=== PATIENT | male | born 1960 | race African-American/Black ===

== ENCOUNTER 2016-08-02 00:27 | Emergency (ER) | payer OTHER ==
[~2016-08-02] VITALS: Ht 175.3 cm; Wt 95.3 kg
[~2016-08-02 00:27] MED LIST: ALBUTEROL0.09 MG/A1 INH; AUGMENTIN 875-1 EACH PO; PREDNISONE 20MG20 MG PO; PREDNISONE50 M1 PO; VENTOLIN HFA18 GM PO
--- NOTE | 2016-08-02 01:00 | ED DYSPNEA/ASTHMA COMPLAINT ---
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 Source: patient, old records Exam Limitations: no limitations Vital Signs & Intake/Output Vital Signs & Intake/Output Vital Signs Date Time Temp Pulse Resp B/P B/P Pulse O2 O2 Flow FiO2 Mean Ox Delivery Rate 08/02 224 97.0 78 18 128/88 97 Nasal 2.0L Cannula 08/02 0120 98 Nasal 2.0L Cannula 08/02 011 98 Nasal 2.0L Cannula 08/02 0038 96 Room Air 08/03 31 97.9 82 22 131/90 96 Room Air Allergies Coded Allergies: No Known Allergies (07/15/15) Reconcile Medications Albuterol Sulfate (Albuterol Sulfate Hfa) 0.09 MG/Actuation STANISLAV 2 PUFF INH Q4- 6 PRN PRN SHORTNESS OF BREATH 90 MCG PER PUFF Albuterol Sulfate (Ventolin Hfa) 18 GM HFA.AER.AD 2 PUFF PO 4 TIMES/DAY PRN WHEEZE Albuterol Sulfate (Proair Hfa) 90 MCG HFA.AER.AD 2-4 PUF INH Q4-6 PRN PRN shortness of breath Amoxicillin/Potassium Clav (Augmentin 875-125 Tablet) 1 EACH TABLET 1 TAB PO BID BRONCHITIS Prednisone 20 MG TAB 2 TAB PO DAILY ASTHMA Prednisone 50 MG TABLET 1 TAB PO QDAY ASTHMA Prednisone 20 MG TABLET 1 TAB PO BID asthma Triage Note: PT TO ED C/O ASTHMA ATTACK. PT USED ENTIRE ALBUTEROL INHALER, WITHOUT RELIEF. S/S SINCE YESTERDAY. Triage Nurses Notes Reviewed? yes Onset: Morning Duration: hour(s):, constant, continues in ED Timing: recent history Severity: moderate Activities at Onset: none Prior Episodes/Possible Cause: allergen exposure Modifying Factors: Improves With: other. Worsens With: movement. Associated Symptoms: cough, wheezing, weakness HPI: 1 day prior to admission patient had recurrent wheezing nonproductive cough fatigue that usually happens this time of year. He denies fever chills nausea vomiting diarrhea abdominal pain chest pain headache dysuria rash bleeding. Past History Travel History Traveled to [place] past 21 day No Medical History Any Pertinent Medical History? 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 No Review of Systems Review of Systems Constitutional: Reports: see HPI, malaise. EENTM: Reports: no symptoms. Respiratory: Reports: see HPI, cough, short of breath, wheezing. Cardiovascular: Reports: no symptoms. GI: Reports: no symptoms. Genitourinary: Reports: no symptoms. Musculoskeletal: Reports: no symptoms. Skin: Reports: no symptoms. Neurological/Psychological: Reports: no symptoms. Hematologic/Endocrine: Reports: no symptoms. Immunologic/Allergic: Reports: no symptoms. All Other Systems: Reviewed and Negative Physical Exam Physical Exam General Appearance: well developed/nourished, alert, awake, anxious, moderate distress, obese Head: atraumatic, normal appearance Eyes: Bilateral: normal appearance, PERRL, EOMI. Ears, Nose, Throat: normal pharynx, normal ENT inspection Neck: normal inspection, supple, full range of motion, no midline tenderness Respiratory: chest non-tender, decreased breath sounds, wheezing, respiratory distress Cardiovascular: regular rate/rhythm, normal peripheral pulses, norml femoral pulses equa Peripheral Pulses: 4+ carotid (R), 4+ carotid (L) Gastrointestinal: normal bowel sounds, soft, non-tender, no organomegaly Extremities: normal inspection, normal capillary refill, normal range of motion, no edema Neurologic/Psych: no motor/sensory deficits, awake, alert, oriented x 3, normal gait, 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 No Severe Sepsis Present: No Septic Shock Present: No Progress Differential Diagnosis: asthma, bronchitis, COPD, pneumonia Plan of Care: Current Medications Sig/Enma Start time Last Medication Dose Stop Time Status Admin Albuterol Sulfate 3 ML ONCE ONE 08/02 99 UNVr (Proventil) 08/02 100 Albuterol Sulfate 3 ML ONCE ONE 08/02 99 UNVr (Proventil) 08/02 100 Ipratropium [employer] 2.5 ML ONCE ONE 08/02 99 UNVr (Atrovent) 08/02 100 Prednisone 60 MG ONCE ONE 08/02 99 UNVr 08/02 100 Initial ED EKG: none Departure Departure Time of Disposition: 422 Disposition: HOME OR SELF CARE Condition: Stable Clinical Impression Primary Impression: Asthma with acute exacerbation in adult Referrals: PATIENT HAS NO PRIMARY CARE DR (PCP/Family) Departure Forms: Customer Survey General Discharge Information RELEASE- WORK Prescriptions: Current Visit Scripts Prednisone 1 TAB PO BID #10 TAB Albuterol Sulfate (Proair Hfa) 2-4 PUF INH Q4-6 PRN PRN shortness of breath #1 INHAL Ref 5 Critical Care Note Critical Care Note Critical Care Time: non-applicable
[2016-08-02] MEDS ORDERED: PROAIR HFA8.5 GM INH (01:30)
[2016-08-02] MEDS ORDERED: PREDNISONE20 M1 PO (01:30)
[2016-08-02 04:40] VITALS: BP 129/87
== END 2016-08-02 04:40 ==
LOC: ERH 00:27
DX: J45.901 Unspecified asthma with (acute) exacerbation (principal)
CPT/HCPCS: 1263; 1395